=== PATIENT | female | born 1935 | race Caucasian/White ===

== ENCOUNTER 2017-01-19 18:11 | Emergency (ER) | payer OTHER ==
[~2017-01-19] VITALS: Ht 162.6 cm; Wt 54.4 kg
--- NOTE | 2017-01-19 18:22 | ED GI/GU/ABDOMINAL COMPLAINT ---
History of Present Illness General Chief Complaint: Abdominal Pain/Flank Pain Stated Complaint: LOW ABD PAIN, R FLANK PAIN Source: patient, family Exam Limitations: no limitations Vital Signs & Intake/Output Vital Signs & Intake/Output Vital Signs Date Time Temp Pulse Resp B/P B/P Pulse O2 O2 Flow FiO2 Mean Ox Delivery Rate 01/19 2121 98.0 70 18 149/70 97 Room Air 01/19 2029 98.0 67 18 174/96 97 Room Air 01/19 1818 98.2 89 18 162/88 99 Room Air Allergies Coded Allergies: Penicillins (UNKNOWN 01/19/17) Sulfa (Sulfonamide Antibiotics) (UNKNOWN 01/19/17) erythromycin base (UNKNOWN 01/19/17) phenytoin (From DILANTIN) (UNKNOWN 01/19/17) sulfamethoxazole (From BACTRIM) (UNKNOWN 01/19/17) trimethoprim (From BACTRIM) (UNKNOWN 01/19/17) Reconcile Medications Atorvastatin Calcium (Lipitor) 40 MG TABLET 1 TAB PO DAILY CHOLESTEROL ( Reported) Carvedilol 6.25 MG TABLET 1 TAB PO BID HEART/BP (Reported) Cyclobenzaprine HCl 5 MG TABLET 1 TAB PO Q8P PRN PAIN Lisinopril 2.5 MG TABLET 1 TAB PO DAILY BP (Reported) Triage Note: PT TO ED FOR R SIDED FLANK PAIN RADIATING TO BILATERAL LOWER QUADRANTS SINCE WEDNESDAY, TAKING ADVIL AT HOME WITH NO RELIEF, DENIES NVD, DENIES URINARY S/S, Triage Nurses Notes Reviewed? yes ? N Is pt currently ? No Onset: Gradual Duration: day(s): (4) Timing: recent history Location: right flank Radiation: RLQ Activities at Onset: none No Modifying Factors: none HPI: 81 year old female h/o meningioma resection in 30's, htn, dyslipidemia presents to the ER with right flank pain radiating to abdomen since Wednesday. Family noticed she was rubbing her abdomen all weekend long. No fever or chills. Denies any urinary symptoms. Last BM was 2 days ago. Patient states the pain was in her back but then came around to the front. No appetite. Her daughter gave her advil over the weekend then again this morning with some ensure. (ALTAF SHEPHERD,MODESTA) Past History Travel History Traveled to [place] past 21 day No Medical History Any Pertinent Medical History? 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 No (MODESTA SOLITARIO MD) Review of Systems Review of Systems Constitutional: Reports: weakness. Denies: chills, diaphoresis. EENTM: Reports: no symptoms. Respiratory: Denies: cough, short of breath. Cardiovascular: Denies: chest pain, peripheral edema. GI: Reports: abdominal pain. Denies: constipation, diarrhea, nausea, changes in stool, vomiting. Genitourinary: Denies: discharge, dysuria, frequency, hematuria. Musculoskeletal: Reports: back pain. Skin: Reports: no symptoms. Neurological/Psychological: Denies: anxiety. Hematologic/Endocrine: Denies: bruising, bleeding. Immunologic/Allergic: Denies: splenectomy. All Other Systems: Reviewed and Negative (MODESTA SOLITARIO MD) Physical Exam Physical Exam General Appearance: alert, awake, mild distress, thin Head: atraumatic, normal appearance Eyes: Bilateral: normal appearance, PERRL, EOMI. Ears, Nose, Throat, Mouth: hearing grossly normal, moist mucous membrane Neck: normal inspection, supple, full range of motion Respiratory: normal breath sounds, chest non-tender, no respiratory distress Cardiovascular: regular rate/rhythm Peripheral Pulses: 2+ radial (R), 2+ radial (L) Gastrointestinal: normal bowel sounds, soft, tenderness (rlq, suprapubic) Back: normal inspection, normal range of motion, TENDER OVER ILIAC CREST Extremities: normal range of motion, evidence of injury Neurologic/Psych: no motor/sensory deficits, awake, alert, oriented x 3 Core Measures ACS in differential dx? No Severe Sepsis Present: No Septic Shock Present: No (MODESTA SOLITARIO MD) Progress Differential Diagnosis: colon cancer, cholecystitis, kidney stone, UTI/pyelo Diagnostic Imaging: Viewed by Me: CT Scan. Discussed w/RAD: CT Scan. Initial ED EKG: NSR, RBBB Hand-Off Endorsed To: VERONICA SHEPHERD,GEORGINA Rubi Endorsed Time: 1910 Pending: CT, labs (ALTAF SHEPHERD,MODESTA) Plan of Care: Orders Procedure Date/time Status BLOOD CULTURE 01/20 1912 Active EKG 01/19 1833 Active URINALYSIS 01/19 1813 Complete TROPONIN LEVEL 01/19 1813 Complete LACTIC ACID 01/19 1813 Complete COMPREHENSIVE METABOLIC PANEL 01/19 1813 Complete CBC WITHOUT DIFFERENTIAL 01/19 1813 Complete Laboratory Tests 01/19/172112: Lactic Acid Cancelled 01/19/172037: Urine Color STRAW, Urine Clarity CLEAR, Urine pH 6.0, Ur Specific [place] 1.010, Urine Protein NEG, Urine Ketones TRACE H, Urine Nitrite NEG, Urine Bilirubin NEG, Urine Urobilinogen 0.2, Ur Leukocyte Esterase NEG, Ur Microscopic SEDIMENT EXAMINED, Urine RBC 1-3, Urine WBC 3-5 H, Ur Epithelial Cells FEW, Urine Bacteria RARE H, Urine Mucus FEW, Urine Hemoglobin TRACE-LYSED, Urine Glucose NEG 01/19/171837: Anion Gap 10, Estimated GFR > 60, BUN/Creatinine Ratio 18.3, Glucose 91, Lactic Acid 0.7, Calcium 8.8, Total Bilirubin 1.7 H, AST 21, ALT 33, Alkaline Phosphatase 75, Troponin I 0.02, Total Protein 6.3, Albumin 3.8, Globulin 2.5, Albumin/Globulin Ratio 1.5, CBC w Diff MAN DIFF ORDERED, RBC 4.41, MCV 89.3, MCH 29.2, RDW 14.5, MPV 8.7, Gran % 17.7 L, Lymphocytes % 77.9 H, Monocytes % 3.3, Eosinophils % 0.8, Basophils % 0.3, Absolute Granulocytes 5.8, Segmented Neutrophils 17 L, Absolute Lymphocytes 25.4 H, Lymphocytes 78 H, Monocytes 5, Absolute Monocytes 1.1 H, Absolute Eosinophils 0.2, Absolute Basophils 0.1, Platelet Estimate ADEQUATE, Normochromic RBCs VERIFIED, Anisocytosis 1+, PUBS MCHC 32.7 L Microbiology 01/19 1930 BLOOD: Blood Culture - RECD 01/19 1915 BLOOD: Blood Culture - RECD Radiology Impression: PATIENT: DELANEY NAYLOR PRESENT AGE: 81 PATIENT ACCOUNT NO: [id number] : 35 LOCATION: [facility] ORDERING PHYSICIAN: MODESTA SOLITARIO MD SERVICE DATE: 01/19/17 EXAM TYPE: CAT - CT ABD & PELVIS W IV CONTRAST EXAMINATION: CT ABDOMEN AND PELVIS WITH CONTRAST CLINICAL INFORMATION: Right lower quadrant pain since 2 days. COMPARISON: None TECHNIQUE: Multidetector volumetric imaging was performed of the abdomen and pelvis before and after the IV administration of 95 mL of Optiray 320 intravenous contrast. Sagittal and coronal reformatted images were obtained on the technologist's workstation. DLP: 244 mGy-cm FINDINGS: LUNG BASES: Lung bases are hyperinflated with minimal atelectasis scarring in the lingula and lung base. There is 3 mm soft nodule right lung base image 3, series 2. The heart size is normal. Minimal nonspecific mild posterior pleural thickening is seen. LIVER, GALLBLADDER, AND BILIARY TREE: The liver is normal in size, shape, and attenuation. There are several hypodense lesions in the left an right lobe of liver. The largest nonenhancing lesion left lobe measures 7 mm. There is a well- defined peripherally enhancing lesion in the right lobe segment 7 measuring 2.7 x 2.7 cm. This most likely represents a hemangioma. Other lesions arch as hepatoma are not excluded. The gallbladder is unremarkable with no evidence of radiopaque gallstones, gallbladder wall thickening, or obvious pericholecystic inflammatory changes. PANCREAS: Unremarkable. SPLEEN: A small hypodense 1.2 cm lesion measuring 12 Hounsfield units suggestive of simple cysts. A small accessory nodule there is noted along the inferior hilum. ADRENAL GLANDS: Unremarkable. KIDNEYS AND URETERS: The kidneys are normal in size, shape, and attenuation. No perinephric stranding. There is a 3.8 x 3.9 cm cysts midpole right kidney. In addition there are several bilateral parapelvic cysts left greater than right. No hydronephrosis seen. No radiopaque calculi. BLADDER: Unremarkable. GASTROINTESTINAL TRACT: There is moderate stool and gas seen throughout the redundant colon more so in the right colon with mild distention of the transverse colon with gas. The cecum is mobile and lies in the right midabdomen. The appendix is normal caliber. The ileocecal junction and the small bowel loops are normal caliber. No free air or free fluid. ABDOMINAL WALL: No significant hernia is appreciated. LYMPH NODES: Normal. VASCULAR: There is atherosclerotic calcification of abdominal aorta and common iliac arteries without aneurysmal dilatation. PELVIC VISCERA: There are a few scattered sigmoid diverticuli but no evidence of diverticulitis. There is no free air or free fluid. The uterus is atrophic or partially removed. Calcifications and/or surgical sutures seen in the right adnexa from previous intervention. There are scattered phleboliths in pelvis. No abnormal lymph nodes seen. OSSEOUS STRUCTURES: Degenerative L4-L5 disc changes with vacuum disc phenomena and spondylosis noted. There is a compression fracture T12 vertebra most likely old. IMPRESSION: Moderate constipation with distention of transverse colon with gas but no inflammatory bowel disease seen. There is no pericolic stranding. Scattered diverticuli in sigmoid colon without diverticulitis. No free air or free fluid. Bilateral parapelvic and moderate size exophytic midpole right kidney cysts. There is no hydronephrosis. Small hypodense nonenhancing liver and spleen lesions most likely simple cysts. However there is a peripherally enhancing 2.8 cm lesion in the right hepatic lobe suggestive of hemangioma. This can be confirmed with MRI liver scan with contrast. Right lower lobe pulmonary nodule. Recommend correlation with CT chest as an outpatient. DICTATED BY: NANY CHANG MD DATE/TIME DICTATED:01/19/172009 BASE WAD OPERATOR ADJUSTER:CRISELDA DATE/ TIME TRANSCRIBED:01/19/172009 CONFIDENTIAL, DO NOT COPY WITHOUT APPROPRIATE AUTHORIZATION. <Electronically signed in Other Vendor System> SIGNED BY: CHARLENE SHEPHERD,NANY 01/19/172027 Comments: Patient has a known history of CLL. Labs and CAT scan have been discussed with the patient and her family. Questions are answered. Patient is stable for discharge. (VERONICA SHEPHERD,GEORGINA Rubi) Departure Departure Condition: Stable Departure Forms: Customer Survey General Discharge Information (ALTAF SHEPHERD,MODESTA) Departure Disposition: HOME OR SELF CARE Clinical Impression Primary Impression: Flank pain Additional Instructions: Return for any concerns. Prescriptions: Current Visit Scripts Cyclobenzaprine HCl 1 TAB PO Q8P PRN PAIN #30 TAB (VERONICA SHEPHERD,GEORGINA Rubi)
[2017-01-19] MEDS ORDERED: CARVEDILOL6.25 M1 PO (18:40)
[2017-01-19] MEDS ORDERED: LIPITOR40 M1 PO (18:41)
[2017-01-19] MEDS ORDERED: LISINOPRIL2.5 M1 PO (18:41)
[2017-01-19 18:57] LABS: ABSOLUTE BASOPHIL COUNT 0.1 /CUMM (0.0-0.2); ABSOLUTE EOSINOPHIL COUNT 0.2 /CUMM (0.0-0.7); ABSOLUTE GRANULOCYTE CT 5.8 /CUMM (1.4-6.5); ABSOLUTE LYMPH COUNT 25.4 /CUMM (1.2-3.4); ABSOLUTE MONOCYTE COUNT 1.1 /CUMM (0.10-0.60); BASOPHIL % 0.3 % (0.0-2.0); EOSINOPHIL % 0.8 % (0-5); GRANULOCYTE % 17.7 % (42.2-75.2); HEMATOCRIT 39.4 % (37-47); MEAN CORPUSCULAR HGB 29.2 PG (27.0-31.0); MEAN CORPUSCULAR HGB CONC 32.7 G/DL (33.0-37.0); MEAN CORPUSCULAR VOLUME 89.3 FL (81.0-99.0); MEAN PLATELET VOLUME 8.7 FL (7.4-10.4); PLATELET COUNT 201 /CUMM (130-400); RBC DISTRIBUTION WIDTH 14.5 % (11.5-14.5); RED BLOOD CELL CT 4.41 /CUMM (4.20-5.40)
[2017-01-19 19:05] LABS: WHITE BLOOD CELL COUNT 32.6 /CUMM (4.8-10.8)
--- NOTE | 2017-01-19 20:28 | CT SCAN REPORT ---
EXAMINATION: CT ABDOMEN AND PELVIS WITH CONTRAST CLINICAL INFORMATION: Right lower quadrant pain since 2 days. COMPARISON: None TECHNIQUE: Multidetector volumetric imaging was performed of the abdomen and pelvis before and after the IV administration of 95 mL of Optiray 320 intravenous contrast. Sagittal and coronal reformatted images were obtained on the technologist's workstation. DLP: 244 mGy-cm FINDINGS: LUNG BASES: Lung bases are hyperinflated with minimal atelectasis scarring in the lingula and lung base. There is 3 mm soft nodule right lung base image 3, series 2. The heart size is normal. Minimal nonspecific mild posterior pleural thickening is seen. LIVER, GALLBLADDER, AND BILIARY TREE: The liver is normal in size, shape, and attenuation. There are several hypodense lesions in the left an right lobe of liver. The largest nonenhancing lesion left lobe measures 7 mm. There is a well-defined peripherally enhancing lesion in the right lobe segment 7 measuring 2.7 x 2.7 cm. This most likely represents a hemangioma. Other lesions arch as hepatoma are not excluded. The gallbladder is unremarkable with no evidence of radiopaque gallstones, gallbladder wall thickening, or obvious pericholecystic inflammatory changes. PANCREAS: Unremarkable. SPLEEN: A small hypodense 1.2 cm lesion measuring 12 Hounsfield units suggestive of simple cysts. A small accessory nodule there is noted along the inferior hilum. ADRENAL GLANDS: Unremarkable. KIDNEYS AND URETERS: The kidneys are normal in size, shape, and attenuation. No perinephric stranding. There is a 3.8 x 3.9 cm cysts midpole right kidney. In addition there are several bilateral parapelvic cysts left greater than right. No hydronephrosis seen. No radiopaque calculi. BLADDER: Unremarkable. GASTROINTESTINAL TRACT: There is moderate stool and gas seen throughout the redundant colon more so in the right colon with mild distention of the transverse colon with gas. The cecum is mobile and lies in the right midabdomen. The appendix is normal caliber. The ileocecal junction and the small bowel loops are normal caliber. No free air or free fluid. ABDOMINAL WALL: No significant hernia is appreciated. LYMPH NODES: Normal. VASCULAR: There is atherosclerotic calcification of abdominal aorta and common iliac arteries without aneurysmal dilatation. PELVIC VISCERA: There are a few scattered sigmoid diverticuli but no evidence of diverticulitis. There is no free air or free fluid. The uterus is atrophic or partially removed. Calcifications and/or surgical sutures seen in the right adnexa from previous intervention. There are scattered phleboliths in pelvis. No abnormal lymph nodes seen. OSSEOUS STRUCTURES: Degenerative L4-L5 disc changes with vacuum disc phenomena and spondylosis noted. There is a compression fracture T12 vertebra most likely old. IMPRESSION: Moderate constipation with distention of transverse colon with gas but no inflammatory bowel disease seen. There is no pericolic stranding. Scattered diverticuli in sigmoid colon without diverticulitis. No free air or free fluid. Bilateral parapelvic and moderate size exophytic midpole right kidney cysts. There is no hydronephrosis. Small hypodense nonenhancing liver and spleen lesions most likely simple cysts. However there is a peripherally enhancing 2.8 cm lesion in the right hepatic lobe suggestive of hemangioma. This can be confirmed with MRI liver scan with contrast. Right lower lobe pulmonary nodule. Recommend correlation with CT chest as an outpatient.
[2017-01-19] MEDS ORDERED: CYCLOBENZAPRINE5 M2 PO (21:15)
[2017-01-19 21:21] VITALS: BP 149/70
== END 2017-01-19 21:26 ==
LOC: ERH 18:11
PROVIDERS: Physician Assistant Medical
DX: R10.9 Unspecified abdominal pain (principal)
CPT/HCPCS: 74177; 81001; 87040; 93005; 93010; 96361; 96374; J0131; J7040